=== PATIENT | female | born 1945 | race African-American/Black ===

== ENCOUNTER 2017-01-10 07:42 | Observation (INO) | payer MEDICARE, MEDICAID ==
[~2017-01-10] VITALS: Ht 180.3 cm; Wt 106.4 kg
[~2017-01-10 07:42] MED LIST: ADVAIR DISK1 IN; ADVAIR DISK1 INH; ALBUTEROL0.5 % IN; AMOXICILLIN500 MG PO; BACLOFEN10 MG PO; BENICAR HCT1 TA1 PO; BENICAR HCT1 TAB OR; BENICAR HCT1 TAB PO; CELEBREX100 MG OR; CELEBREX200 MG PO; CHOL MED; CIPRO500 MG PO; DUONEB IN; FLEXERIL OR; FLUTICASONE50 MCG; LIPITOR80 MG PO; MEDDOSEPAK PO; NEBULIZE2 IN; NEXIUM40 M1 PO; NEXIUM40 MG OR; NEXIUM40 MG PO; OXY1; PREMARIN0.3 MG OR; PREVACID30 M2 PO; PROVENTIL0.083 % IN; SINGULAIR10 MG OR; SINGULAIR10 MG PO; ULTRAM50 M1 PO; ULTRAM50 MG OR; VALTREX1 GM PO
[2017-01-10] MEDS ORDERED: AMLODIPINE5 MG PO (08:02)
[2017-01-10] MEDS ORDERED: ASPIRIN81 MG PO (08:02)
[2017-01-10] MEDS ORDERED: MELOXICAM7.5 MG PO (08:03)
[2017-01-10] MEDS ORDERED: CYCLOBENZAPR5 MG PO (08:04)
[2017-01-10 08:31] LABS: HEMATOCRIT 40.1 % (37.0-47.0); HEMOGLOBIN 12.9 g/dl (12.0-16.0); IMMATURE GRANULOCYTES 0.3 % (0.0-1.0); MEAN CELL VOLUME 89.7 fL CALC (80.0-100.0); MEAN CORPUSCULAR HGB 28.9 pG CALC (26.0-32.0); MEAN CORPUSCULAR HGB CONC 32.2 g/L CALC (32.0-36.0); NEUT# 2.24 thou/uL (2.00-7.15); RED BLOOD COUNT 4.47 mill/uL (4.20-5.60); RED CELL DISTRI WIDTH 14.3 % (11.5-15.5)
[2017-01-10 08:46] LABS: ALBUMIN 4.2 g/dL (3.2-5.0); ALKALINE PHOSPHATASE 93 u/l (38-126); AMYLASE 77 u/l (30-110); ANION GAP 16 (6-22 (CALC)); BILIRUBIN, TOTAL 1.1 mg/dL (0.0-1.4); BUN 11 mg/dL (8-23); BUN/CREATININE RATIO 17 (12-20 (CALC)); CALCIUM 9.3 mg/dL (8.4-10.2); CARBON DIOXIDE 28 mmol/l (22-30); CHLORIDE 105 mmol/l (95-108); CREATININE 0.6 mg/dL (0.5-1.0); GFR > 60 ML/MIN (>=60 (CALC)); GFR FOR AFR.AMER. > 60 ML/MIN (>=60 (CALC)); GLUCOSE 99 mg/dL (82-115); LIPASE 78 u/l (23-300); POTASSIUM 3.9 mmol/l (3.5-5.1); SGOT/AST 24 u/l (9-36); SGPT/ALT 22 u/l (11-66); SODIUM 144 mmol/l (137-146); TOTAL PROTEIN 7.7 g/dL (6.3-8.2)
[2017-01-10 08:55] LABS: MYOGLOBIN 31 ng/mL (0 - 62)
[2017-01-10 10:21] VITALS: BP 187/94
[2017-01-10 15:27] VITALS: BP 171/84
[2017-01-10 16:32] VITALS: BP 168/84
[2017-01-10 18:57] VITALS: BP 137/81
[2017-01-10 23:35] VITALS: BP 130/73
[2017-01-11 04:54] VITALS: BP 139/85
[2017-01-11 06:26] LABS: HEMATOCRIT 42.3 % (37.0-47.0); HEMOGLOBIN 13.5 g/dl (12.0-16.0); IMMATURE GRANULOCYTES 0.5 % (0.0-1.0); MEAN CELL VOLUME 90.4 fL CALC (80.0-100.0); MEAN CORPUSCULAR HGB 28.8 pG CALC (26.0-32.0); MEAN CORPUSCULAR HGB CONC 31.9 g/L CALC (32.0-36.0); NEUT# 2.46 thou/uL (2.00-7.15); RED BLOOD COUNT 4.68 mill/uL (4.20-5.60); RED CELL DISTRI WIDTH 14.6 % (11.5-15.5)
[2017-01-11 07:04] LABS: ANION GAP 13 (6-22 (CALC)); BUN 14 mg/dL (8-23); BUN/CREATININE RATIO 22 (12-20 (CALC)); CALCIUM 9.8 mg/dL (8.4-10.2); CARBON DIOXIDE 29 mmol/l (22-30); CHLORIDE 107 mmol/l (95-108); CREATININE 0.6 mg/dL (0.5-1.0); GFR > 60 ML/MIN (>=60 (CALC)); GFR FOR AFR.AMER. > 60 ML/MIN (>=60 (CALC)); GLUCOSE 93 mg/dL (82-115); POTASSIUM 3.9 mmol/l (3.5-5.1); SODIUM 145 mmol/l (137-146)
[2017-01-11 07:59] VITALS: BP 138/92
[2017-01-11] MEDS ORDERED: COZAAR25 MG PO (10:02)
[2017-01-11 11:49] VITALS: BP 150/85
== END 2017-01-11 12:42 | disposition home or self-care (01) ==
LOC: ENPENDDIS → ED 07:42 → ED-I 09:04 → ED 09:28 → MS2 09:29
PROVIDERS: Emergency Medicine; Internal Medicine; ADMIT Internal Medicine; ATTEND Internal Medicine
DX: R07.89 Other chest pain (principal); I10 Essential (primary) hypertension; E78.5 Hyperlipidemia, unspecified; J45.909 Unspecified asthma, uncomplicated; M19.90 Unspecified osteoarthritis, unspecified site; K21.9 Gastro-esophageal reflux disease without esophagitis
CPT/HCPCS: J1650

== ENCOUNTER 2017-04-16 08:21 | Day surgery (SDC) | payer MEDICARE, MEDICAID ==
[~2017-04-16] VITALS: Ht 182.9 cm; Wt 106.1 kg
[~2017-04-16 08:21] MED LIST changes: +AMLODIPINE5 MG PO; +ASPIRIN ADULT L81 M3 PO; +ASPIRIN81 MG PO; +COZAAR25 MG PO; +CYCLOBENZAPR5 MG PO; +MELOXICAM7.5 MG PO
[2017-04-16 14:57] VITALS: BP 187/90
== END 2017-04-16 10:40 | disposition home or self-care (01) ==
LOC: ENDO 08:21 → ORM 10:15 → ENDO 10:15
PROVIDERS: ATTEND Internal Medicine Gastroenterology
PROC: 0DJD8ZZ Inspection of Lower Intestinal Tract, Via Natural or Artificial Opening Endoscopic (ICD-10-PCS; principal; 2017-04-16)
DX: K59.00 Constipation, unspecified (principal); K64.4 Residual hemorrhoidal skin tags; K64.8 Other hemorrhoids; K21.9 Gastro-esophageal reflux disease without esophagitis; I10 Essential (primary) hypertension; J45.909 Unspecified asthma, uncomplicated; Z86.010 Personal history of colon polyps

== ENCOUNTER 2017-11-13 01:01 | Emergency (ER) | payer MEDICARE, MEDICAID ==
[~2017-11-13] VITALS: Ht 182.9 cm; Wt 108.0 kg
[2017-11-13 01:57] LABS: HEMATOCRIT 42.3 % (37.0-47.0); HEMOGLOBIN 13.6 g/dl (12.0-16.0); IMMATURE GRANULOCYTES 0.2 % (0.0-1.0); MEAN CELL VOLUME 89.2 fL CALC (80.0-100.0); MEAN CORPUSCULAR HGB 28.7 pG CALC (26.0-32.0); MEAN CORPUSCULAR HGB CONC 32.2 g/L CALC (32.0-36.0); NEUT# 3.59 thou/uL (2.00-7.15); RED BLOOD COUNT 4.74 mill/uL (4.20-5.60); RED CELL DISTRI WIDTH 14.5 % (11.5-15.5)
[2017-11-13 01:58] LABS: URINE BILIRUBIN - DIPSTICK NEGATIVE (NEGATIVE); URINE BLOOD DIPSTICK NEGATIVE (NEGATIVE); URINE COLOR YELLOW; URINE GLUCOSE - DIPSTICK NEGATIVE (NEGATIVE); URINE KETONE NEGATIVE (NEGATIVE); URINE LEUK ESTERASE TRACE (NEGATIVE); URINE NITRITE - DIPSTICK NEGATIVE (Negative); URINE PH 6.5 (4.5-8.0); URINE PROTEIN - DIPSTICK NEGATIVE (NEG-TRACE); URINE UROBILINOGEN - DIPSTICK 0.2 E.U./dL (0.2)
[2017-11-13 02:00] LABS: URINE CLARITY CLEAR
[2017-11-13 02:43] LABS: ALBUMIN 4.1 g/dL (3.2-5.0); ALKALINE PHOSPHATASE 93 u/l (38-126); ANION GAP 14 (6-22 (CALC)); BILIRUBIN, TOTAL 0.6 mg/dL (0.0-1.4); BUN 18 mg/dL (8-23); BUN/CREATININE RATIO 28 (12-20 (CALC)); CARBON DIOXIDE 25 mmol/l (22-30); CHLORIDE 109 mmol/l (95-108); CREATININE 0.7 mg/dL (0.5-1.0); GFR > 60 ML/MIN (>=60 (CALC)); GFR FOR AFR.AMER. > 60 ML/MIN (>=60 (CALC)); POTASSIUM 3.9 mmol/l (3.5-5.1); SGOT/AST 20 u/l (9-36); SGPT/ALT 18 u/l (11-66); SODIUM 144 mmol/l (137-146); TOTAL PROTEIN 6.8 g/dL (6.3-8.2)
[2017-11-13 04:18] VITALS: BP 132/70
== END 2017-11-13 04:18 | disposition home or self-care (01) ==
LOC: ED 01:01
PROVIDERS: Emergency Medicine
DX: R51 Headache (principal); I10 Essential (primary) hypertension; J45.909 Unspecified asthma, uncomplicated

== ENCOUNTER 2017-12-15 22:30 | Emergency (ER) | payer MEDICARE, MEDICAID ==
[~2017-12-15] VITALS: Ht 182.9 cm; Wt 105.8 kg
[2017-12-15] MEDS ORDERED: Levaquin PO (23:15)
[2017-12-15] MEDS ORDERED: ALL DAY ALLG10 MG PO (23:16)
[2017-12-16 02:33] VITALS: BP 140/98
== END 2017-12-16 02:34 | disposition home or self-care (01) ==
LOC: ED 22:30
DX: G43.909 Migraine, unspecified, not intractable, without status migrainosus (principal); I10 Essential (primary) hypertension; J45.909 Unspecified asthma, uncomplicated

== ENCOUNTER 2018-07-08 06:12 | Day surgery (SDC) | payer MEDICARE, MEDICAID ==
[~2018-07-08] VITALS: Ht 180.3 cm; Wt 104.3 kg
[~2018-07-08 06:12] MED LIST changes: +ALL DAY ALLG10 MG PO; +HYDRALAZINE50 MG PO; +LOSARTAN POTAS100 MG PO; +Levaquin PO; +METO50TA52 PO
[2018-07-08 09:37] VITALS: BP 170/82
== END 2018-07-08 09:29 | disposition home or self-care (01) ==
LOC: ENDO 06:12 → ORM 11:30
PROVIDERS: ATTEND Internal Medicine Gastroenterology
PROC: 0DJD8ZZ Inspection of Lower Intestinal Tract, Via Natural or Artificial Opening Endoscopic (ICD-10-PCS; principal; 2018-07-08)
DX: K59.00 Constipation, unspecified (principal); K64.8 Other hemorrhoids; K64.4 Residual hemorrhoidal skin tags; I10 Essential (primary) hypertension; Z86.010 Personal history of colon polyps

== ENCOUNTER → 2018-11-17 | Outpatient (REF) | payer MEDICARE, MEDICAID ==
[2018-11-17 11:32] LABS: ALBUMIN 3.8 g/dL (3.2-5.0); ALKALINE PHOSPHATASE 66 u/l (38-126); ANION GAP 11 (6-22 (CALC)); BILIRUBIN, TOTAL 0.9 mg/dL (0.0-1.4); BUN 14 mg/dL (8-23); BUN/CREATININE RATIO 21 (12-20 (CALC)); CALCULATED LDLCHOLESTEROL 129 mg/dL (62-129 (CALC)); CARBON DIOXIDE 28 mmol/l (22-30); CHLORIDE 106 mmol/l (95-108); CHOLESTEROL HDL RATIO 3.2 (<4.4 (CALC)); CREATININE 0.7 mg/dL (0.5-1.0); GFR > 60 ML/MIN (>=60 (CALC)); GFR FOR AFR.AMER. > 60 ML/MIN (>=60 (CALC)); HDL CHOLESTEROL 62 mg/dL (>=40); POTASSIUM 4.1 mmol/l (3.5-5.1); SGOT/AST 17 u/l (9-36); SODIUM 142 mmol/l (137-146); TOTAL CHOLESTEROL 200 mg/dl (0-199); TOTAL PROTEIN 6.6 g/dL (6.3-8.2); TOTAL TRIGLYCERIDES 46 mg/dl (30-149); VLDL CHOLESTROL 9 mg/dl (0-48 (CALC))
== END | disposition home or self-care (01) ==
LOC: RT 09:12
PROVIDERS: ATTEND Internal Medicine Geriatric Medicine
DX: J44.9 Chronic obstructive pulmonary disease, unspecified (principal); E78.2 Mixed hyperlipidemia

== ENCOUNTER 2019-10-06 12:35 | Emergency (ER) | payer MEDICARE, MEDICAID ==
[2019-10-06 14:40] VITALS: BP 157/81
== END 2019-10-06 14:40 | disposition home or self-care (01) ==
LOC: ED 12:35
DX: S01.502A Unspecified open wound of oral cavity, initial encounter (principal); I10 Essential (primary) hypertension; X58.XXXA Exposure to other specified factors, initial encounter

== ENCOUNTER 2022-08-18 21:58 | Emergency (ER) | payer MEDICARE, MEDICAID ==
[~2022-08-18] VITALS: Ht 180.3 cm; Wt 100.0 kg
[2022-08-18] VITALS (8 sets, daily range): BP systolic 145–169; BP diastolic 80–101
[2022-08-18 22:32] LABS: HEMOGLOBIN 11.6 g/dl (12.0-16.0); MEAN CELL VOLUME 88.9 fL CALC (80.0-100.0); MEAN CORPUSCULAR HGB 28.6 pG CALC (26.0-32.0); MEAN CORPUSCULAR HGB CONC 32.2 g/dL CAL (32.0-36.0); NEUT# 2.06 thou/uL (2.00-7.15); RED BLOOD COUNT 4.05 mill/uL (4.20-5.60); RED CELL DISTRI WIDTH 14.4 % (11.5-15.5)
[2022-08-18 22:44] LABS: ALBUMIN 4.4 g/dL (3.2-5.0); ALKALINE PHOSPHATASE 72 u/l (38-126); ANION GAP 13 (6-22 (CALC)); BILIRUBIN, TOTAL 0.7 mg/dL (0.0-1.4); BUN 25 mg/dL (8-23); BUN/CREATININE RATIO 32 (12-20 (CALC)); CARBON DIOXIDE 30 mmol/l (22-30); CHLORIDE 105 mmol/l (95-108); CREATININE 0.8 mg/dL (0.5-1.0); GFR FOR AFR.AMER. > 60 ML/MIN (>=60 (CALC)); GFR OTHER RACES > 60 ML/MIN (>=60 (CALC)); LIPASE 138 u/l (23-300); POTASSIUM 3.4 mmol/l (3.5-5.1); SGOT/AST 29 u/l (9-36); SODIUM 144 mmol/l (137-146)
[2022-08-18 22:58] LABS: PROTHROMBIN TIME 10.2 SECONDS (9.0-12.5)
[2022-08-19 00:01] VITALS: BP 158/81
[2022-08-19 00:16] VITALS: BP 147/91
[2022-08-19 00:31] VITALS: BP 143/81
[2022-08-19 00:46] VITALS: BP 154/85
== END 2022-08-19 01:00 | disposition home or self-care (01) ==
LOC: ED 21:58
PROVIDERS: Internal Medicine
DX: R07.9 Chest pain, unspecified (principal); I10 Essential (primary) hypertension; J45.909 Unspecified asthma, uncomplicated

== ENCOUNTER 2023-04-01 07:22 | Day surgery (SDC) | payer MEDICARE, MEDICAID ==
[~2023-04-01] VITALS: Ht 180.3 cm; Wt 97.5 kg
[~2023-04-01 07:22] MED LIST changes: +ALBUTEROL SUL0.083 % IN; +ALENDRONATE SOD70 MG PO; +HYDROCHLOROT25 MG PO; +ROSUVASTATIN CA40 MG PO; +VENTOLIN HFA108 MCG IN; +XALATAN 0.005%2.5 ML OP
[2023-04-01 09:13] VITALS: BP 165/106
== END 2023-04-01 09:31 | disposition home or self-care (01) ==
LOC: ENDO 07:22 → ORM 08:45 → ENDO 09:31 → ORM 10:40
PROVIDERS: ATTEND Surgery
PROC: 0DBP8ZX Excision of Rectum, Via Natural or Artificial Opening Endoscopic, Diagnostic (ICD-10-PCS; principal; 2023-04-01)
DX: Z12.11 Encounter for screening for malignant neoplasm of colon (principal); K50.10 Crohn's disease of large intestine without complications; K64.8 Other hemorrhoids; I10 Essential (primary) hypertension; E78.5 Hyperlipidemia, unspecified; J45.909 Unspecified asthma, uncomplicated; K21.9 Gastro-esophageal reflux disease without esophagitis; Z86.010 Personal history of colon polyps